=== PATIENT | male | born 1960 | race Caucasian/White ===

== ENCOUNTER 2017-03-28 18:33 | Inpatient (IN) | payer MEDICAID, OTHER, SELFPAY ==
[~2017-03-28] VITALS: Ht 185.4 cm; Wt 112.8 kg
[2017-03-28] MEDS ORDERED: ALBUTEROL/IPRATROPIUM 2.5MG/0.5MG, 3 ML ONE (19:09)
[2017-03-28 19:47] LABS: ASPARTATE AMINO TRANSFERASE 34 U/L (15-37); BLOOD UREA NITROGEN 32 mg/dL (7-18)
[2017-03-28] MEDS ORDERED: DILTIAZEM 125 MG in DEXTROSE 5% 100 ML IV SCH (20:06)
[2017-03-28] MEDS ORDERED: DILTIAZEM 5 MG/ML, 5ML ONE (20:10)
[2017-03-28] MEDS ORDERED: ASPIRIN 81 MG TABLET CHEW ONE (20:10)
[2017-03-28] MEDS ORDERED: ASPIRIN 81 MG TABLET CHEW PO ONE (20:30)
[2017-03-28] MEDS ORDERED: SODIUM CHLORIDE 0.9% 1,000ML IVBOLUS ONE (20:30)
[2017-03-28] MEDS ORDERED: SODIUM CHLORIDE FLUSH 10ML SYR IVF ONE (20:30)
[2017-03-28] MEDS ORDERED: DILTIAZEM 5 MG/ML, 5ML IVPush ONE (20:30)
[2017-03-28] MEDS ORDERED: SODIUM CHLORIDE 0.9% 1,000 ML IV ONE (21:00)
[2017-03-28 21:03] LABS: IS PT STATUS REG ER OR PRE ER? YES
[2017-03-28] MEDS ORDERED: FUROSEMIDE 40 MG/4 ML IV ONE (21:30)
[2017-03-28] MEDS ORDERED: DOCUSATE 100 MG CAPSULE PO PRN (21:30)
[2017-03-28] MEDS ORDERED: POLYETHYLENE GLYCOL 17 GM PACKET PO PRN (21:30)
[2017-03-28] MEDS ORDERED: ACETAMINOPHEN 325 MG TABLET PO PRN (21:30)
[2017-03-28] MEDS ORDERED: ONDANSETRON 2MG/ML, 2ML IVPush PRN (21:30)
[2017-03-28] MEDS ORDERED: BISACODYL 10 MG SUPP PR PRN (21:30)
[2017-03-28] MEDS ORDERED: LABETALOL 5MG/ML, 20ML IVPush PRN (21:30)
[2017-03-28] MEDS ORDERED: DILTIAZEM 125 MG in SODIUM CHLORIDE 0.9% 100 ML IV SCH (21:30)
[2017-03-28 21:56] VITALS: BP 135/88
[2017-03-28] MEDS ORDERED: HEPARIN 25,000 UNITS/500ML PMX 500 ML IV PRN (23:00)
[2017-03-28] MEDS ORDERED: HEPARIN 5,000 UNITS/ML, 1ML IV PRN (23:00)
[2017-03-28] MEDS ORDERED: HEPARIN 5,000 UNITS/ML, 1ML IV ONE (23:00)
[2017-03-28] MEDS: HYDROcodone/APAP 5/325 TABLET PO PRN (23:02)
[2017-03-28] MEDS: CEFTRIAXONE PMX 1GM/50ML 50 ML IV SCH (23:26)
[2017-03-28] MEDS: methylPREDNISolone SOD SUCC 125 MG/2 ML IVPush SCH (23:38)
[2017-03-29] MEDS: DOXYCYCLINE 100 MG in DEXTROSE 5% 250 ML IV SCH ×3 (00:03→23:41)
[2017-03-29 01:20] VITALS: BP 114/78
[2017-03-29] MEDS: morphine SULFATE 10 MG/ML, 1ML IVPush PRN ×2 (02:10→22:51)
[2017-03-29] MEDS: methylPREDNISolone SOD SUCC 125 MG/2 ML IVPush SCH ×3 (06:20→18:22)
[2017-03-29] MEDS: ALBUTEROL SULFATE 2.5 MG/3 ML NPPB SCH ×4 (06:37→20:00)
[2017-03-29 06:38] LABS: BLOOD UREA NITROGEN 30 mg/dL (7-18)
[2017-03-29 06:41] VITALS: BP 111/68
[2017-03-29] MEDS: GUAIFENESIN ER 600 MG TABLET PO SCH ×2 (09:55→20:19)
[2017-03-29] MEDS: HYDROcodone/APAP 5/325 TABLET PO PRN ×2 (10:03→18:22)
[2017-03-29] MEDS: DILTIAZEM 30 MG TABLET PO SCH ×3 (12:44→20:19)
[2017-03-29 14:04] VITALS: BP 132/80
[2017-03-29 20:12] VITALS: BP 131/71
[2017-03-29] MEDS: APIXABAN 5 MG TABLET PO SCH (20:20)
[2017-03-29] MEDS: CEFTRIAXONE PMX 1GM/50ML 50 ML IV SCH (22:51)
[2017-03-30] MEDS: methylPREDNISolone SOD SUCC 125 MG/2 ML IVPush SCH ×3 (00:28→12:00)
[2017-03-30 03:58] VITALS: BP 111/79
[2017-03-30 05:13] LABS: BLOOD UREA NITROGEN 28 mg/dL (7-18)
[2017-03-30] MEDS: ALBUTEROL SULFATE 2.5 MG/3 ML NPPB SCH (06:05)
[2017-03-30 06:17] VITALS: BP 132/76
[2017-03-30] MEDS: DILTIAZEM 30 MG TABLET PO SCH ×2 (06:18→11:00)
[2017-03-30] MEDS ORDERED: ALBUTEROL SULFATE 2.5 MG/3 ML NPPB PRN (07:00)
[2017-03-30 08:00] VITALS: BP 132/77
[2017-03-30] MEDS: GUAIFENESIN ER 600 MG TABLET PO SCH ×2 (08:00→09:00)
[2017-03-30] MEDS: APIXABAN 5 MG TABLET PO SCH (08:00)
[2017-03-30] MEDS ORDERED: APIX5TAB PO (11:36)
[2017-03-30] MEDS ORDERED: DOXY100T PO (11:36)
[2017-03-30] MEDS ORDERED: DILT30TA33 PO (11:36)
[2017-03-30] MEDS ORDERED: PRED20TA PO (11:36)
[2017-03-30] MEDS ORDERED: ALBU18HF INH (11:36)
[2017-03-30] MEDS: DOXYCYCLINE 100 MG in DEXTROSE 5% 250 ML IV SCH (12:00)
== END 2017-03-30 12:50 | disposition home or self-care (01) | DRG 308 ==
LOC: ED 20:16 → EDIP 20:44 → 5SO 22:36 → DCLOUNGE 03-30 12:30
PROVIDERS: ADMIT Internal Medicine; ATTEND Internal Medicine
DX: I48.0 Paroxysmal atrial fibrillation (principal); I50.33 Acute on chronic diastolic (congestive) heart failure; N17.0 Acute kidney failure with tubular necrosis; J45.901 Unspecified asthma with (acute) exacerbation; D68.59 Other primary thrombophilia; E86.0 Dehydration; N28.9 Disorder of kidney and ureter, unspecified; I11.0 Hypertensive heart disease with heart failure; I27.2 Other secondary pulmonary hypertension; D72.829 Elevated white blood cell count, unspecified; K40.90 Unilateral inguinal hernia, without obstruction or gangrene, not specified as recurrent; J44.9 Chronic obstructive pulmonary disease, unspecified; Z86.73 Personal history of transient ischemic attack (TIA), and cerebral infarction without residual deficits; Z91.19 Patient's noncompliance with other medical treatment and regimen; Z87.891 Personal history of nicotine dependence
CPT/HCPCS: 36415; 71020; 80048; 80053; 80061; 81003; 82436; 82570; 83036; 83735; 83880; 84133; 84300; 84443; 84484; 85025; 85520; 93005; 93306; 94640; 96361; 96365; 96375; J0696; J1644; J1940; J7060; J7613; J2270; J2930; J7030; J7512

== ENCOUNTER 2018-01-23 17:21 | Emergency (ER) | payer MEDICAID ==
[~2018-01-23] VITALS: Ht 185.4 cm; Wt 107.0 kg
[~2018-01-23 17:21] MED LIST: ALBU18HF INH; APIX5TAB PO; DILT30TA33 PO; DOXY100T PO; PRED20TA PO
[2018-01-23 18:24] LABS: BASOPHILS # (AUTO) 0.02 x10^3/uL (0-0.1); BASOPHILS % (AUTO) 0 % (0-1); EOSINOPHILS # (AUTO) 0.26 x10^3/uL (0-0.4); EOSINOPHILS % (AUTO) 3 % (1-7); LYMPHOCYTES # (AUTO) 1.34 x10^3/uL (1-3.4); LYMPHOCYTES % (AUTO) 14 % (22-44); MD NO; MEAN CORPUSCULAR HEMOGLOBIN 32.1 pg (27.5-34.5); MEAN CORPUSCULAR HGB CONC 33.4 g/dL (33.2-36.2); MEAN CORPUSCULAR VOLUME 96.3 fL (81-97); MEAN PLATELET VOLUME 8.3 fL (7.4-10.4); MONOCYTES % (AUTO) 15 % (2-9); NEUTROPHILS # (AUTO) 6.32 x10^3/uL (1.8-6.8); NEUTROPHILS % (AUTO) 68 % (42-75); PLATELET COUNT 189 x10^3/uL (130-400); RED BLOOD COUNT 5.05 x10^6/uL (4.38-5.82)
[2018-01-23 18:35] LABS: ALBUMIN 3.4 g/dL (3.4-5.0); ANION GAP 10 mmol/L (5-15); CALCIUM 8.8 mg/dL (8.5-10.1); CHLORIDE 108 mmol/L (98-107); CREATININE 1.34 mg/dL (0.7-1.3)
[2018-01-23 18:38] LABS: TROPONIN I < 0.015 ng/mL (0.000-0.045)
[2018-01-23 19:14] VITALS: BP 152/92
== END 2018-01-23 19:32 | disposition home or self-care (01) ==
LOC: ED 19:20
DX: I48.2 Chronic atrial fibrillation (principal); J44.1 Chronic obstructive pulmonary disease with (acute) exacerbation; I50.9 Heart failure, unspecified
CPT/HCPCS: 36415; 71046; 80048; 82040; 83880; 84484; 85025; 93005; 99285